=== PATIENT | female | born 1960 | race Caucasian/White ===

== ENCOUNTER 2019-09-06 17:23 | Observation (INO) ==
[2019-09-06] MEDS ORDERED: 0.9 % Sodium Chloride 1,000 ML IVC ONE ×2 (18:13→21:15)
[2019-09-06] MEDS ORDERED: Isovue-370 500 ML BOTTLE IVP ONE (18:13)
[2019-09-06 18:41] LABS: Bilirubin,Urine Small (Negative); Blood,Urine Negative (Negative); Clarity,Urine Cloudy (Clear); Color,Urine Yellow (Yellow); Glucose,Urine (UA) Normal (Normal); Ketones,Urine 40 mg/dL (Negative); Leukocyte Esterase,Urine Small (Negative); Nitrite,Urine Negative (Negative); PH,Urine 6.5 pH Units (5.0-8.0); Protein,Urine Negative (Neg-Trace); Specific Gravity,Urine 1.021 (1.010-1.025); Urobilinogen,Urine Normal (Normal)
[2019-09-06 18:44] LABS: Bacteria,Urine None Seen per hpf (None-Few); Hyaline Casts,Urine None Seen per lpf (None-Few); RBC,Urine 0-3 per hpf (0-3); Squamous Epithelial Cell,Urine Many per lpf (None-Few)
[2019-09-06 19:05] LABS: Basophils % 0.8 %; Eosinophils % 1.1 %; Hemoglobin 10.6 g/dL (11.5-15.4); Immature Granulocytes % 0.6 % (0-4); Lymphocytes # 1.5 K/mcL (0.6-4.6); Lymphocytes % 41.6 %; Mean Corpuscular HGB Conc 35.3 g/dL (31.6-35.5); Mean Corpuscular Hemoglobin 32.1 pg (28.0-33.3); Mean Corpuscular Volume 90.9 fL (83.0-100.0); Mean Platelet Volume 10.8 fL (9.4-12.4); Monocytes # 0.5 K/mcL (0.0-1.3); Monocytes % 12.6 %; Platelet Count 228 K/mcL (140-400); Red Cell Distribution Width 12.3 % (11.5-14.5); Segmented Neutrophils % 43.3 %; White Blood Count 3.6 K/mcL (4.3-11.1)
[2019-09-06 19:07] LABS: Neutrophils # 1.6 K/mcL (1.6-8.9)
[2019-09-06 19:24] LABS: BUN/Creatinine Ratio 18 (6-26); Blood Urea Nitrogen 12 mg/dL (8-23); Calcium 8.3 mg/dL (8.6-10.3); Carbon Dioxide 23 mEq/L (23-29); Chloride 97 mEq/L (98-107); Glucose 83 mg/dL (70-105); Osmolality,Calculated 271 (280-300); Potassium 3.7 mEq/L (3.5-5.1); Sodium 131 mEq/L (136-145); eGFR For African Americans > 60 (> 60); eGFR For Non-African Americans > 60 (> 60)
[2019-09-06 19:30] LABS: Platelet Estimate Normal (Normal); Reactive Lymphocytes Present (Not Present)
[2019-09-06] MEDS ORDERED: cefTRIAXone 2,000 MG in Water for inj. (sterile) 20 ML IVP ONE (20:36)
[2019-09-06] MEDS ORDERED: Azithromycin 500 MG in 0.9 % Sodium Chloride 250 ML IVPB ONE (20:37)
[2019-09-06] MEDS ORDERED: Ondansetron 4 MG/2 ML VIAL IVP PRN (22:53)
[2019-09-06] MEDS ORDERED: Naloxone 0.4 MG/ML INJ IVP PRN (22:53)
[2019-09-06] MEDS: 0.9 % Sodium Chloride 1,000 ML IVC SCH (23:08)
[2019-09-06] MEDS: *HR* Heparin 5,000 UNIT/ML VIAL SQ SCH (23:27)
[2019-09-06] MEDS: cefTRIAXone 2,000 MG in Water for inj. (sterile) 20 ML IVP SCH (23:27)
[2019-09-06] MEDS ORDERED: *HR* Promethazine 25 MG/ML VIAL IVP PRN (23:58)
[2019-09-07] MEDS: Ipratropium/Albuterol Neb 3 ML IH SCH ×7 (00:22→23:55)
[2019-09-07] MEDS ORDERED: Acetaminophen 325 MG TABLET PO ONE (04:54)
[2019-09-07] MEDS ORDERED: Ibuprofen 600 MG TABLET PO ONE (05:55)
[2019-09-07] MEDS: 0.9 % Sodium Chloride 1,000 ML IVC SCH (06:01)
[2019-09-07 06:44] LABS: Hematocrit 26.6 % (35.3-44.9); Mean Corpuscular HGB Conc 33.8 g/dL (31.6-35.5); Mean Corpuscular Hemoglobin 31.7 pg (28.0-33.3); Mean Corpuscular Volume 93.7 fL (83.0-100.0); Mean Platelet Volume 11.3 fL (9.4-12.4); Platelet Count 177 K/mcL (140-400); Red Blood Count 2.84 M/mcL (3.82-4.97); Red Cell Distribution Width 12.2 % (11.5-14.5); White Blood Count 2.8 K/mcL (4.3-11.1)
[2019-09-07 07:05] LABS: BUN/Creatinine Ratio 14 (6-26); Blood Urea Nitrogen 8 mg/dL (8-23); Calcium 7.9 mg/dL (8.6-10.3); Carbon Dioxide 20 mEq/L (23-29); Chloride 105 mEq/L (98-107); Glucose 87 mg/dL (70-105); Magnesium 1.9 mg/dL (1.6-2.6); Osmolality,Calculated 284 (280-300); Phosphorous 2.4 mg/dL (2.7-4.5); Potassium 3.2 mEq/L (3.5-5.1); Sodium 138 mEq/L (136-145); eGFR For African Americans > 60 (> 60); eGFR For Non-African Americans > 60 (> 60)
[2019-09-07] MEDS: *HR* Heparin 5,000 UNIT/ML VIAL SQ SCH ×3 (08:23→23:21)
[2019-09-07] MEDS: MethylPREDNISolone 40 MG/ML VIAL IVP SCH ×2 (08:24→20:46)
[2019-09-07] MEDS ORDERED: Azithromycin desensitization 1 mg/mL IVP SCH (09:00)
[2019-09-07 09:06] LABS: Eosinophils # 0.1 K/mcL (0.0-0.6); Lymphocytes # 1.1 K/mcL (0.6-4.6); Monocytes # 0.3 K/mcL (0.0-1.3); Neutrophils # 1.3 K/mcL (1.6-8.9); Reactive Lymphocytes Present (Not Present)
[2019-09-07 09:08] LABS: Hypochromasia Present (Not Present); Platelet Estimate Normal (Normal)
[2019-09-07] MEDS: cefTRIAXone 2,000 MG in Water for inj. (sterile) 20 ML IVP SCH (23:11)
[2019-09-08] MEDS: Ipratropium/Albuterol Neb 3 ML IH SCH ×3 (03:41→12:22)
[2019-09-08 06:49] LABS: Hematocrit 26.8 % (35.3-44.9); Hemoglobin 9.1 g/dL (11.5-15.4); Immature Granulocytes % 1.2 % (0-4); Lymphocytes # 0.8 K/mcL (0.6-4.6); Lymphocytes % 25.6 %; Mean Corpuscular Hemoglobin 31.6 pg (28.0-33.3); Mean Corpuscular Volume 93.1 fL (83.0-100.0); Mean Platelet Volume 10.7 fL (9.4-12.4); Monocytes # 0.3 K/mcL (0.0-1.3); Neutrophils # 2.1 K/mcL (1.6-8.9); Platelet Count 258 K/mcL (140-400); Red Blood Count 2.88 M/mcL (3.82-4.97); Red Cell Distribution Width 12.8 % (11.5-14.5); Segmented Neutrophils % 64.2 %; White Blood Count 3.2 K/mcL (4.3-11.1)
[2019-09-08 07:15] LABS: % Iron Saturation 49 % (15-50); Iron 95 mcg/dL (50-170); Transferrin 138 mg/dL (203-362)
[2019-09-08 07:22] LABS: BUN/Creatinine Ratio 19 (6-26); Blood Urea Nitrogen 10 mg/dL (8-23); Calcium 9.2 mg/dL (8.6-10.3); Carbon Dioxide 22 mEq/L (23-29); Chloride 106 mEq/L (98-107); Glucose 143 mg/dL (70-105); Osmolality,Calculated 290 (280-300); Potassium 4.6 mEq/L (3.5-5.1); Sodium 139 mEq/L (136-145); eGFR For African Americans > 60 (> 60); eGFR For Non-African Americans > 60 (> 60)
[2019-09-08 07:36] LABS: Ferritin > 1500 ng/mL (10-120); Folate 13.1 ng/mL (3.0-16.0)
[2019-09-08] MEDS ORDERED: Folic Acid 1 MG TABLET PO SCH (09:00)
[2019-09-08] MEDS: *HR* Heparin 5,000 UNIT/ML VIAL SQ SCH (09:04)
[2019-09-08] MEDS: MethylPREDNISolone 40 MG/ML VIAL IVP SCH (09:04)
[2019-09-08 10:18] VITALS: BP 116/59
== END 2019-09-08 13:39 | disposition home or self-care (01) ==
LOC: 3ANU 17:23 → EMEROOARM 17:23 → SUATTDRO 21:51 → 3ANU 22:26
PROVIDERS: ADMIT Internal Medicine; ATTEND Pharmacist